=== PATIENT | male | born 1985 | race Caucasian/White ===

== ENCOUNTER 2017-11-29 12:51 | Emergency (ER) | payer OTHER ==
[2017-11-29 13:00] VITALS: RESP 18
[2017-11-29] MEDS ORDERED: PHENAZOPYRIDINE 200 MG TAB PO STA (13:41)
--- NOTE | 2017-11-29 13:45 | ED ---
Male Urogenital HPI - General Chief complaint: Urogenital Stated complaint: Groin pain Time Seen by Provider: 11/29/17 13:21 Source: patient Mode of arrival: ambulatory Limitations: no limitations - History of Present Illness Initial comments: Patient is a 32-year-old male presents with a chief complaint of urinary frequency. The patient states that this happened to him 9 months ago, he was seen by his primary care doctor and started on Cipro for suspected prostatitis. The patient had a bad gastrointestinal reaction to medication and stop scores early. The patient states that when his GI symptoms resolved, so did his urinary symptoms. As of the last week or so, the patient is now experiencing urinary symptoms again. He states that the pain is hard to characterize however he states that he feels it is mostly in his penis. He states that the irritation is relieved with urination however immediately after it is worse. He states that he can avoid urinating the irritation will improve. He has had multiple screening tests for UTI, and sexual transmitted infections however they 've been negative. He denies any trauma to the area, he states that he has not been sexually active in the last year. He states that he has tried masturbation without any relief. He denies fever, chills, nausea or vomiting, or back pain. - Related Data Home Medications Medication Instructions Recorded Confirmed Cranberry Fruit Concentrate [Azo 250 mg PO DAILY 11/29/17 11/29/17 Cranberry] Ibuprofen 800 mg PO DAILY 11/29/17 11/29/17 Losartan Potassium 100 mg PO DAILY 11/29/17 11/29/17 Sulfamethox-Tmp 800-160Mg [Bactrim 1 tab PO Q12HR 11/29/17 11/29/17 DS 800-160 mg] Tamsulosin HCl [Flomax] 0.4 mg PO DAILY 11/29/17 11/29/17 Previous Rx's Medication Instructions Recorded ALPRAZolam [Xanax] 0.5 mg PO DAILY PRN #3 tablet 11/29/17 Phenazopyridine HCl [Pyridium] 200 mg PO BID #6 tablet 11/29/17 Allergies Allergy/AdvReac Type Severity Reaction Status Date / Time No Known Allergies Allergy Verified 11/29/17 14:06 Review of Systems ROS Statement: Those systems with pertinent positive or pertinent negative responses have been documented in the HPI. ROS Other: All systems not noted in ROS Statement are negative. Genitourinary: Reports: urgency, dysuria, frequency. Denies: hematuria, discharge, testicular pain, testicular mass Past Medical History Past Medical History: Hypertension Additional Past Medical History / Comment(s): prostatitis History of Any Multi-Drug Resistant Organisms: None Reported Past Surgical History: No Surgical Hx Reported Past Psychological History: No Psychological Hx Reported Smoking Status: Former smoker Past Alcohol Use History: None Reported Past Drug Use History: None Reported General Exam Limitations: no limitations General appearance: alert, in no apparent distress Head exam: Present: atraumatic, normocephalic Eye exam: Present: normal appearance ENT exam: Present: normal exam Neck exam: Present: normal inspection Respiratory exam: Present: normal lung sounds bilaterally. Absent: respiratory distress, wheezes Cardiovascular Exam: Present: regular rate, normal rhythm GI/Abdominal exam: Present: soft. Absent: distended, tenderness Rectal exam: Present: deferred exam: Present: normal inspection, circumcision. Absent: testicular tenderness, urethral discharge, scrotal swelling Extremities exam: Present: normal inspection Back exam: Present: normal inspection Neurological exam: Present: alert, oriented X3 Psychiatric exam: Present: normal affect, normal mood Skin exam: Present: warm, dry, intact Course Vital Signs 11/29/17 12:57 Temperature 97.8 F Pulse Rate 95 Respiratory 18 Rate Blood Pressure 152/95 O2 Sat by Pulse 98 Oximetry Medical Decision Making - Medical Decision Making Patient is a 32-year-old male with chief complaint of urinary frequency and irritation. On initial evaluation, vitals are stable, patient is in no acute distress. Patient has had multiple evaluations of his urine, and was placed on antibiotics for a suspected prostatitis without any relief. During physical examination consistent with urethritis however causes unknown. Patient will be given Pyridium in the emergency department. Basic labs will be sent along with urinalysis. Given the duration of patient's symptoms, he was sent to the emergency department for expedited imaging. Ultimately, patient will need to follow-up with urology. 4:35 PM Lab evaluation is unremarkable, urinalysis did not show any evidence of infection or inflammation. Computed tomography scan and ultrasound show no acute process. Case discussed with Dr. Aparicio who recommends follow-up if symptoms do not improve. Patient will be prescribed Pyridium, and Xanax for use at night. I had a long discussion with the potential side effects and addictive nature of the Xanax with the patient. He will be prescribed 3 tablets to be used only at night. Patient instructed to follow up with primary care and to make an appointment with urology. - Lab Data Result diagrams: 11/29/17 13:48 11/29/17 13:48 Lab Results 11/29/17 11/29/17 11/29/17 Range/Units 13:48 13:48 13:48 WBC 6.8 (3.8-10.6) k/uL RBC 4.92 (4.30-5.90) m/uL Hgb 14.6 (13.0-17.5) gm/dL Hct 46.7 (39.0-53.0) % MCV 95.0 (80.0-100.0) fL MCH 29.6 (25.0-35.0) pg MCHC 31.1 (31.0-37.0) g/dL RDW 17.1 H (11.5-15.5) % Plt Count 236 (150-450) k/uL Neutrophils % 58 % Lymphocytes % 32 % Monocytes % 6 % Eosinophils % 1 % Basophils % 2 % Neutrophils # 4.0 (1.3-7.7) k/uL Lymphocytes # 2.2 (1.0-4.8) k/uL Monocytes # 0.4 (0-1.0) k/uL Eosinophils # 0.1 (0-0.7) k/uL Basophils # 0.1 (0-0.2) k/uL Anisocytosis Slight Sodium 139 (137-145) mmol/L Potassium 4.4 (3.5-5.1) mmol/L Chloride 105 (98-107) mmol/L Carbon Dioxide 20 L (22-30) mmol/L Anion Gap 14 mmol/L BUN 13 (9-20) mg/dL Creatinine 0.97 (0.66-1.25) mg/dL Est GFR (CKD-EPI)AfAm >90 (>60 ml/min/1.73 sqM) Est GFR (CKD-EPI)NonAf >90 (>60 ml/min/1.73 sqM) Glucose 86 (74-99) mg/dL Calcium 9.5 (8.4-10.2) mg/dL Total Bilirubin 0.9 (0.2-1.3) mg/dL AST 64 H (17-59) U/L ALT 38 (21-72) U/L Alkaline Phosphatase 93 (38-126) U/L Total Protein 8.0 (6.3-8.2) g/dL Albumin 4.8 (3.5-5.0) g/dL Urine Color Light Yellow Urine Appearance Clear (Clear) Urine pH 5.5 (5.0-8.0) Ur Specific [place] 1.002 (1.001-1.035) Urine Protein Negative (Negative) Urine Glucose (UA) Negative (Negative) Urine Ketones Trace H (Negative) Urine Blood Negative (Negative) Urine Nitrite Negative (Negative) Urine Bilirubin Negative (Negative) Urine Urobilinogen <2.0 (<2.0) mg/dL Ur Leukocyte Esterase Negative (Negative) Disposition Clinical Impression: Urethritis Disposition: HOME SELF-CARE Condition: Good Instructions: Nonspecific Urethritis in Men (ED) Is patient prescribed a controlled substance at d/c from ED?: Yes If prescribed controlled substance>3 days was MAPS reviewed?: Prescribed <3 Days Referrals: Solo Alarcon DO [Primary Care Provider] - 1-2 days Calvin Aparicio MD [STAFF PHYSICIAN] - 1-2 days
[2017-11-29 14:07] LABS: Appearance,Urine Clear (Clear); Bilirubin,Urine Negative (Negative); Blood,Urine Negative (Negative); Color,Urine Light Yellow; Glucose,Urine (UA) Negative (Negative); Ketones,Urine Trace (Negative); Leukocyte Esterase,Urine Negative (Negative); Nitrite,Urine Negative (Negative); PH, Urine 5.5 (5.0-8.0); Protein,Urine Negative (Negative); Specific Gravity,Urine 1.002 (1.001-1.035); Urobilinogen,Urine <2.0 mg/dL (<2.0)
[2017-11-29 14:17] LABS: ALT 38 U/L (21-72); AST 64 U/L (17-59); Albumin 4.8 g/dL (3.5-5.0); Alkaline Phosphatase 93 U/L (38-126); Anion Gap 14 mmol/L; Blood Urea Nitrogen 13 mg/dL (9-20); Calcium 9.5 mg/dL (8.4-10.2); Carbon Dioxide 20 mmol/L (22-30); Chloride 105 mmol/L (98-107); Glucose 86 mg/dL (74-99); Potassium 4.4 mmol/L (3.5-5.1); Sodium 139 mmol/L (137-145); Total Bilirubin 0.9 mg/dL (0.2-1.3)
[2017-11-29 14:36] LABS: Anisocytosis Slight; Basophils # (A) 0.1 k/uL (0-0.2); Basophils % (A) 2 %; Eosinophils # (A) 0.1 k/uL (0-0.7); Eosinophils % (A) 1 %; HCT 46.7 % (39.0-53.0); HGB 14.6 gm/dL (13.0-17.5); Lymphocytes # (A) 2.2 k/uL (1.0-4.8); Lymphocytes % (A) 32 %; MCH 29.6 pg (25.0-35.0); MCHC 31.1 g/dL (31.0-37.0); Mean Platelet Volume 9.9; Monocytes # (A) 0.4 k/uL (0-1.0); Monocytes % (A) 6 %; Neutrophils % (A) 58 %; Platelet Count 236 k/uL (150-450); RBC 4.92 m/uL (4.30-5.90); RDW 17.1 % (11.5-15.5); WBC 6.8 k/uL (3.8-10.6)
--- NOTE | 2017-11-29 15:01 | CT ---
EXAMINATION TYPE: CT abdomen pelvis w con DATE OF EXAM: 11/29/2017 COMPARISON: None HISTORY: Penile pain CT DLP: 1080.2 mGycm Automated exposure control for dose reduction was used. TECHNIQUE: Helical acquisition of images was performed from the lung bases through the pelvis. CONTRAST: Performed without Oral Contrast and with IV Contrast, patient injected with 100 mL of Isovue 300. FINDINGS: LUNG BASES: Elongated linear probable area of scarring is partially visualized within the right middl e lobe peripherally. LIVER/GB: No significant abnormality is appreciated. PANCREAS: No significant abnormality is seen. No ductal dilatation. SPLEEN: No significant abnormality is seen. No splenomegaly. ADRENALS: No significant abnormality is seen. No nodularity or thickening. KIDNEYS: Kidneys enhance and excrete symmetrically. FREE AIR: No free air is visualized. ADENOPATHY: No greater than 1 cm short axis lymph node is seen within the abdomen or pelvis. REPRODUCTIVE ORGANS: Few dystrophic calcifications are seen within the central gland. URINARY BLADDER: No significant abnormality is seen. PELVIC ADENOPATHY: None visualized. OSSEOUS STRUCTURES: No significant abnormality is seen. BOWEL: No significant abnormality is seen. No dilated loops of bowel. Descending colon is partially decompressed. Appendix is air-filled and within normal limits. IMPRESSION: NO CT FINDINGS TO CORRELATE WITH THIS PATIENT'S SYMPTOMS.
--- NOTE | 2017-11-29 16:02 | US ---
EXAMINATION TYPE: US renals and bladder DATE OF EXAM: 11/29/2017 COMPARISON: CT done today CLINICAL HISTORY: Pain. EXAM MEASUREMENTS: Right Kidney: 9.7 x 4.9 x 6.2 cm Left Kidney: 9.9 x 5.0 x 6.2 cm Right Kidney: No hydronephrosis or masses seen Left Kidney: No hydronephrosis or masses seen Bladder: wnl Bilateral Jets seen: Yes There is no evidence for hydronephrosis at this point in time. No nephrolithiasis is seen. No yudy s are identified. The urinary bladder is anechoic. Bilateral ureteral jets are seen. IMPRESSION: Normal renal ultrasound
[2017-11-29 16:54] VITALS: BP 170/73; PULSE 75; TEMP 98.1
== END 2017-11-29 16:53 | disposition home or self-care (01) ==
LOC: EC 12:51
DX: N34.2 Other urethritis (principal); I10 Essential (primary) hypertension; N42.89 Other specified disorders of prostate; Z87.891 Personal history of nicotine dependence; Z79.1 Long term (current) use of non-steroidal anti-inflammatories (NSAID); Z79.899 Other long term (current) drug therapy; Z98.890 Other specified postprocedural states
CPT/HCPCS: 36415; 80053; 85025; 81003; 76770; 74177; 99284; Q9967